=== PATIENT | female | born 1995 | race Caucasian/White ===

== ENCOUNTER 2020-04-27 06:15 | Emergency (ER) | payer OTHER ==
[~2020-04-27] VITALS: Ht 177.8 cm; Wt 87.0 kg
[2020-04-27 06:26] VITALS: BP 131/82
--- NOTE | 2020-04-27 06:59 | NUR ---
CORRECTIONS SPECIALIST: PT TO ROOM FROM LOBBY
--- NOTE | 2020-04-27 07:01 | NUR ---
THIS IS A 24 YEAR OLD FEMALE WHO C/O OF RIGHT SHOULDER PAIN. "I JUST WOKE UP AND HAD PAIN"
[2020-04-27] MEDS ORDERED: NAPROXEN 500 MG TABLET ONE (07:14)
[2020-04-27] MEDS ORDERED: METHOCARBAMOL 750 MG TABLET ONE (07:14)
[2020-04-27] MEDS ORDERED: METHOCARBAMOL 750 MG TABLET PO ONE (07:30)
[2020-04-27] MEDS ORDERED: NAPROXEN 500 MG TABLET PO ONE (07:30)
--- NOTE | 2020-04-27 07:42 | NUR ---
Patient/Caregiver given discharge instructions and they have confirmed that they understand the instructions. Patient ambulatory with steady gait.
== END 2020-04-27 07:44 | disposition home or self-care (01) ==
LOC: ED 07:30
DX: S29.012A Strain of muscle and tendon of back wall of thorax, initial encounter (principal); M25.511 Pain in right shoulder; X58.XXXA Exposure to other specified factors, initial encounter; Y93.89 Activity, other specified; Y92.89 Other specified places as the place of occurrence of the external cause; Y99.8 Other external cause status
CPT/HCPCS: 99283